=== PATIENT | male | born 1955 | race African-American/Black ===

== ENCOUNTER 2016-09-13 09:15 | Emergency (ER) | payer OTHER ==
[~2016-09-13] VITALS: Ht 170.2 cm; Wt 81.8 kg
[~2016-09-13 09:15] MED LIST: CARAFATE 1GM1 G PO; FLEXERIL5 MG PO; MEDROL 4MG DOSPA4 MG PO; MOTRIN SUSP20 MG/ML; NAPROSYN500 MG PO; NO HOME MEDICATIONS; NORCO 325 MG-51 TAB PO; PEPCID 20MG TAB20 MG PO; PEPCID40 MG PO; PROTONIX 40MG T40 MG PO
[2016-09-13 09:20] VITALS: TEMP 97.8
[2016-09-13] MEDS ORDERED: Antidepressant (09:24)
[2016-09-13 10:19] LABS: BASO # 0.1 (0.0-0.2); BASO % 0.7 % (0.0-2.0); EOS # 0.2 (0.0-0.7); EOS % 2.8 % (0-4.0); GRAN # 4.9 (1.4-6.5); GRAN % 70.8 % (42.2-75.2); HEMATOCRIT 41.4 % (42.0-52.0); HEMOGLOBIN 14.2 g/dl (13.5-18.0); LYMPH # 1.3 (1.2-3.4); LYMPH % 18.4 % (20.0-51.0); MEAN CELL VOLUME 85 fl (80.0-100.0); MEAN CORPUSCULAR HEMOGLOBIN 29 pg (27.0-31.0); MEAN CORPUSCULAR HGB CONC 34 g/dl (33.0-37.0); MEAN PLATELET VOLUME 9.1 fl (7.4-10.4); MONO # 0.5 (0.1-0.6); MONO % 6.7 % (1.7-9.3); PLATELET COUNT 381 K/mm3 (130-400); RED BLOOD COUNT 4.85 M/mm3 (4.20-5.60); REDCELL DISTRIBUTION WIDTH-CV 13.8 % (11.5-14.5); WHITE BLOOD COUNT 6.9 K/mm3 (4.8-10.8)
[2016-09-13 10:29] LABS: ADJUSTED CALCIUM 8.9 mg/dL (8.4-10.2); ALANINE AMINOTRANSFERASE 47 U/L (21-72); ALBUMIN 4.6 gm/dL (3.5-5.0); ALKALINE PHOSPHATASE 71 U/L (50-136); ANION GAP 13 mmol/L (7-16); BILIRUBIN,TOTAL 0.8 mg/dL (0.0-1.0); BLOOD UREA NITROGEN 16 mg/dL (9-20); C-REACTIVE PROTEIN < 0.5 mg/dL (0.0-0.9); CALCIUM 9.4 mg/dL (8.4-10.2); CARBON DIOXIDE 23 mmol/L (22-30); CHLORIDE 102 mmol/L (98-107); GLUCOSE 154 mg/dL (74-106); LIPASE 144 U/L (23-300); POTASSIUM 3.9 mmol/L (3.4-5.0); SODIUM 138 mmol/L (137-145); TOTAL PROTEIN 7.5 gm/dL (6.4-8.2)
[2016-09-13 10:42] LABS: PH 7 (5-8); SQUAMOUS EPITHELIAL 0-2 /hpf; URINE APPEARANCE Clear; URINE BACTERIA None Seen /hpf; URINE BILIRUBIN Negative (NEGATIVE); URINE BLOOD Negative (NEGATIVE); URINE COLOR Yellow; URINE GLUCOSE Negative (NEGATIVE); URINE KETONE Negative (NEGATIVE); URINE RBC 0-2 /hpf; URINE UROBILINOGEN Negative (NEGATIVE); URINE WBC 0-2 /hpf
[2016-09-13 10:49] LABS: TROPONIN-I < 0.012 ng/mL (0.000-0.034)
[2016-09-13] MEDS ORDERED: ZOFRAN 4MG T4 MG/TAB PO (11:29)
[2016-09-13] MEDS ORDERED: NORCO 325 MG-51 TAB PO (11:29)
[2016-09-13] MEDS ORDERED: PROTONIX 40MG T40 MG PO (11:29)
[2016-09-13] MEDS ORDERED: CIPRO 500MG TA500 MG PO (11:30)
[2016-09-13] MEDS ORDERED: FLAGYL500 MG PO (11:30)
[2016-09-13 11:46] VITALS: BP 103/62; PULSE 69
== END 2016-09-13 11:57 | disposition home or self-care (01) ==
LOC: COL.ER 09:15
PROVIDERS: Emergency Medicine
DX: K52.9 Noninfective gastroenteritis and colitis, unspecified (principal); R10.13 Epigastric pain; Z87.11 Personal history of peptic ulcer disease
CPT/HCPCS: J2405; J2550; J7030; Q9967

== ENCOUNTER 2016-09-21 09:34 | Emergency (ER) | payer OTHER ==
[~2016-09-21] VITALS: Ht 170.2 cm; Wt 82.3 kg
[~2016-09-21 09:34] MED LIST changes: +Antidepressant; +CIPRO 500MG TA500 MG PO; +FLAGYL500 MG PO; +ZOFRAN 4MG T4 MG/TAB PO
[2016-09-21 09:36] VITALS: TEMP 99.2
[2016-09-21 10:38] LABS: BASO % 0.1 % (0.0-2.0); GRAN # 13.2 (1.4-6.5); GRAN % 89.6 % (42.2-75.2); HEMATOCRIT 39.8 % (42.0-52.0); HEMOGLOBIN 13.5 g/dl (13.5-18.0); LYMPH # 0.8 (1.2-3.4); LYMPH % 5.3 % (20.0-51.0); MEAN CELL VOLUME 86 fl (80.0-100.0); MEAN CORPUSCULAR HEMOGLOBIN 29 pg (27.0-31.0); MEAN CORPUSCULAR HGB CONC 34 g/dl (33.0-37.0); MEAN PLATELET VOLUME 8.8 fl (7.4-10.4); MONO # 0.7 (0.1-0.6); MONO % 4.5 % (1.7-9.3); PLATELET COUNT 407 K/mm3 (130-400); RED BLOOD COUNT 4.64 M/mm3 (4.20-5.60); REDCELL DISTRIBUTION WIDTH-CV 14.2 % (11.5-14.5); WHITE BLOOD COUNT 14.7 K/mm3 (4.8-10.8)
[2016-09-21 10:53] LABS: ADJUSTED CALCIUM 8.8 mg/dL (8.4-10.2); ALANINE AMINOTRANSFERASE 41 U/L (21-72); ALBUMIN 4.3 gm/dL (3.5-5.0); ALKALINE PHOSPHATASE 62 U/L (50-136); ANION GAP 10 mmol/L (7-16); BILIRUBIN,TOTAL 0.9 mg/dL (0.0-1.0); BLOOD UREA NITROGEN 17 mg/dL (9-20); CARBON DIOXIDE 25 mmol/L (22-30); CHLORIDE 101 mmol/L (98-107); CREATININE, serum 0.88 mg/dL (0.66-1.25); GLUCOSE 116 mg/dL (74-106); LIPASE 272 U/L (23-300); POTASSIUM 3.6 mmol/L (3.4-5.0); SODIUM 136 mmol/L (137-145)
[2016-09-21 10:55] LABS: C-REACTIVE PROTEIN < 0.5 mg/dL (0.0-0.9)
[2016-09-21 11:27] LABS: PH 7 (5-8); SQUAMOUS EPITHELIAL None Seen /hpf; URINE APPEARANCE Clear; URINE BACTERIA None Seen /hpf; URINE BILIRUBIN Negative (NEGATIVE); URINE BLOOD Negative (NEGATIVE); URINE COLOR Yellow; URINE GLUCOSE Negative (NEGATIVE); URINE KETONE Negative (NEGATIVE); URINE RBC 0-2 /hpf; URINE WBC 0-2 /hpf
[2016-09-21] MEDS ORDERED: CIPRO 500MG TA500 MG PO (11:55)
[2016-09-21] MEDS ORDERED: FLAGYL500 MG PO (11:55)
[2016-09-21 13:19] VITALS: BP 131/84; PULSE 63
== END 2016-09-21 14:08 | disposition home or self-care (01) ==
LOC: COL.ER 09:34
PROVIDERS: Emergency Medicine
DX: R10.13 Epigastric pain (principal); Z87.11 Personal history of peptic ulcer disease

== ENCOUNTER 2016-12-02 03:45 | Observation (INO) | payer OTHER ==
[~2016-12-02] VITALS: Ht 170.2 cm; Wt 85.5 kg
[2016-12-02 04:12] LABS: BASO # 0.1 (0.0-0.2); BASO % 0.8 % (0.0-2.0); EOS # 0.5 (0.0-0.7); EOS % 5.5 % (0-4.0); GRAN # 5.2 (1.4-6.5); GRAN % 61.7 % (42.2-75.2); HEMATOCRIT 39.5 % (42.0-52.0); HEMOGLOBIN 13.3 g/dl (13.5-18.0); LYMPH # 2.1 (1.2-3.4); LYMPH % 24.5 % (20.0-51.0); MEAN CELL VOLUME 88 fl (80.0-100.0); MEAN CORPUSCULAR HEMOGLOBIN 30 pg (27.0-31.0); MEAN CORPUSCULAR HGB CONC 34 g/dl (33.0-37.0); MEAN PLATELET VOLUME 8.7 fl (7.4-10.4); MONO # 0.6 (0.1-0.6); MONO % 7.1 % (1.7-9.3); PLATELET COUNT 354 K/mm3 (130-400); REDCELL DISTRIBUTION WIDTH-CV 13.7 % (11.5-14.5); WHITE BLOOD COUNT 8.5 K/mm3 (4.8-10.8)
[2016-12-02 04:24] LABS: ALANINE AMINOTRANSFERASE 39 U/L (21-72); ALBUMIN 4.1 gm/dL (3.5-5.0); ALKALINE PHOSPHATASE 66 U/L (50-136); ANION GAP 14 mmol/L (7-16); BILIRUBIN,TOTAL 0.7 mg/dL (0.0-1.0); BLOOD UREA NITROGEN 17 mg/dL (9-20); CALCIUM 9.1 mg/dL (8.4-10.2); CARBON DIOXIDE 22 mmol/L (22-30); CHLORIDE 104 mmol/L (98-107); CREATININE, serum 1.09 mg/dL (0.66-1.25); GLUCOSE 129 mg/dL (74-106); LIPASE 136 U/L (23-300); POTASSIUM 3.3 mmol/L (3.4-5.0); SODIUM 140 mmol/L (137-145); TOTAL PROTEIN 7.1 gm/dL (6.4-8.2)
[2016-12-02 04:25] LABS: C-REACTIVE PROTEIN < 0.5 mg/dL (0.0-0.9)
[2016-12-02] MEDS ORDERED: IBU800 M1 PO (04:44)
[2016-12-02] MEDS ORDERED: CELEXA40 MG PO (04:46)
[2016-12-02 07:48] VITALS: BP 151/75; PULSE 74; TEMP 98.9
[2016-12-02 09:58] VITALS: BP 140/69; PULSE 63; TEMP 98.8
[2016-12-02 14:16] VITALS: BP 133/65; PULSE 66; TEMP 99.4
[2016-12-02 17:30] VITALS: BP 155/76; PULSE 81; TEMP 99.5
[2016-12-02 22:00] VITALS: BP 129/66; PULSE 80; TEMP 98.9
[2016-12-03 04:00] VITALS: BP 119/64; PULSE 74; TEMP 98.8
[2016-12-03 09:14] VITALS: BP 127/61; PULSE 64; TEMP 98
== END 2016-12-03 13:46 | disposition home or self-care (01) ==
LOC: COL.ER 03:45 → SURG 06:19
PROVIDERS: Emergency Medicine
DX: R11.2 Nausea with vomiting, unspecified (principal); K44.9 Diaphragmatic hernia without obstruction or gangrene; Z87.11 Personal history of peptic ulcer disease
CPT/HCPCS: C9113; G0378; J2270; J2405; J2550; J7030; Q9967

== ENCOUNTER 2016-12-05 01:42 | Emergency (ER) | payer OTHER ==
[~2016-12-05] VITALS: Ht 170.2 cm; Wt 81.8 kg
[~2016-12-05 01:42] MED LIST changes: +CELEXA40 MG PO; +IBU800 M1 PO
[2016-12-05 01:44] VITALS: TEMP 96.8
[2016-12-05 02:13] LABS: BASO # 0.1 (0.0-0.2); BASO % 0.9 % (0.0-2.0); EOS # 0.5 (0.0-0.7); EOS % 6.3 % (0-4.0); GRAN # 5.3 (1.4-6.5); GRAN % 66.1 % (42.2-75.2); HEMATOCRIT 38.2 % (42.0-52.0); HEMOGLOBIN 13.2 g/dl (13.5-18.0); LYMPH # 1.4 (1.2-3.4); LYMPH % 17.7 % (20.0-51.0); MEAN CELL VOLUME 86 fl (80.0-100.0); MEAN CORPUSCULAR HEMOGLOBIN 30 pg (27.0-31.0); MEAN CORPUSCULAR HGB CONC 35 g/dl (33.0-37.0); MEAN PLATELET VOLUME 8.7 fl (7.4-10.4); MONO # 0.7 (0.1-0.6); MONO % 8.4 % (1.7-9.3); PLATELET COUNT 324 K/mm3 (130-400); RED BLOOD COUNT 4.42 M/mm3 (4.20-5.60); REDCELL DISTRIBUTION WIDTH-CV 13.9 % (11.5-14.5)
[2016-12-05 02:25] LABS: ADJUSTED CALCIUM 8.9 mg/dL (8.4-10.2); ALANINE AMINOTRANSFERASE 41 U/L (21-72); ALBUMIN 4.4 gm/dL (3.5-5.0); ALKALINE PHOSPHATASE 61 U/L (50-136); ANION GAP 11 mmol/L (7-16); BILIRUBIN,TOTAL 0.7 mg/dL (0.0-1.0); BLOOD UREA NITROGEN 14 mg/dL (9-20); C-REACTIVE PROTEIN 0.7 mg/dL (0.0-0.9); CALCIUM 9.2 mg/dL (8.4-10.2); CARBON DIOXIDE 26 mmol/L (22-30); CHLORIDE 104 mmol/L (98-107); CREATININE, serum 1.08 mg/dL (0.66-1.25); GLUCOSE 115 mg/dL (74-106); LIPASE 86 U/L (23-300); POTASSIUM 3.7 mmol/L (3.4-5.0); SODIUM 141 mmol/L (137-145); TOTAL PROTEIN 7.3 gm/dL (6.4-8.2)
[2016-12-05 02:47] LABS: TROPONIN-I < 0.012 ng/mL (0.000-0.034)
[2016-12-05 03:15] VITALS: BP 175/96; PULSE 62
== END 2016-12-05 03:30 | disposition home or self-care (01) ==
LOC: COL.ER 01:42
PROVIDERS: Physician Assistant
DX: K29.70 Gastritis, unspecified, without bleeding (principal); K59.00 Constipation, unspecified; K21.9 Gastro-esophageal reflux disease without esophagitis; K27.9 Peptic ulcer, site unspecified, unspecified as acute or chronic, without hemorrhage or perforation; K75.9 Inflammatory liver disease, unspecified; J45.909 Unspecified asthma, uncomplicated; F32.9 Major depressive disorder, single episode, unspecified; M19.90 Unspecified osteoarthritis, unspecified site; Z87.891 Personal history of nicotine dependence; Z98.890 Other specified postprocedural states
CPT/HCPCS: C9113; J1170; J2405; J2550; J7030

== ENCOUNTER 2016-12-05 21:17 | Emergency (ER) | payer OTHER ==
[~2016-12-05] VITALS: Ht 170.2 cm; Wt 83.2 kg
[2016-12-05 21:21] VITALS: TEMP 99.1
[2016-12-05 23:28] VITALS: BP 160/75; PULSE 78
== END 2016-12-05 23:30 | disposition home or self-care (01) ==
LOC: COL.ER 21:17
DX: K59.00 Constipation, unspecified (principal); K75.9 Inflammatory liver disease, unspecified; J45.909 Unspecified asthma, uncomplicated; F32.9 Major depressive disorder, single episode, unspecified; M19.90 Unspecified osteoarthritis, unspecified site; Z87.891 Personal history of nicotine dependence; Z98.890 Other specified postprocedural states

== ENCOUNTER 2016-12-07 00:02 | Emergency (ER) | payer OTHER ==
[~2016-12-07] VITALS: Ht 170.2 cm; Wt 83.2 kg
[2016-12-07 00:03] VITALS: TEMP 98.6
[2016-12-07 00:38] LABS: BASO % 0.4 % (0.0-2.0); EOS # 0.1 (0.0-0.7); EOS % 0.5 % (0-4.0); GRAN % 78.6 % (42.2-75.2); LYMPH # 1.3 (1.2-3.4); LYMPH % 12.5 % (20.0-51.0); MEAN CELL VOLUME 83 fl (80.0-100.0); MEAN CORPUSCULAR HEMOGLOBIN 30 pg (27.0-31.0); MEAN CORPUSCULAR HGB CONC 36 g/dl (33.0-37.0); MEAN PLATELET VOLUME 8.6 fl (7.4-10.4); MONO # 0.8 (0.1-0.6); MONO % 7.5 % (1.7-9.3); PLATELET COUNT 421 K/mm3 (130-400); RED BLOOD COUNT 5.28 M/mm3 (4.20-5.60); REDCELL DISTRIBUTION WIDTH-CV 13.6 % (11.5-14.5); WHITE BLOOD COUNT 10.2 K/mm3 (4.8-10.8)
[2016-12-07 00:39] LABS: HEMOGLOBIN 15.8 g/dl (13.5-18.0)
[2016-12-07 00:47] LABS: ADJUSTED CALCIUM 8.4 mg/dL (8.4-10.2); ALBUMIN 4.7 gm/dL (3.5-5.0); BILIRUBIN,TOTAL 1.4 mg/dL (0.0-1.0); CREATININE, serum 1.04 mg/dL (0.66-1.25); POTASSIUM 3.6 mmol/L (3.4-5.0); TOTAL PROTEIN 8.1 gm/dL (6.4-8.2)
[2016-12-07] MEDS ORDERED: ZOFRAN8 MG PO (01:03)
[2016-12-07] MEDS ORDERED: PRIL40 PO (01:03)
[2016-12-07] MEDS ORDERED: ULTRAM 50MG TAB50 MG PO (01:03)
[2016-12-07] MEDS ORDERED: PERCOCET 325 MG1 TA2 PO (01:03)
[2016-12-07 02:01] VITALS: BP 119/72; PULSE 80
== END 2016-12-07 02:25 | disposition home or self-care (01) ==
LOC: COL.ER 00:02
PROVIDERS: Emergency Medicine
DX: R10.13 Epigastric pain (principal); K75.9 Inflammatory liver disease, unspecified; F32.9 Major depressive disorder, single episode, unspecified; M19.90 Unspecified osteoarthritis, unspecified site; J45.909 Unspecified asthma, uncomplicated; Z87.891 Personal history of nicotine dependence; Z87.01 Personal history of pneumonia (recurrent)
CPT/HCPCS: C9113; J1170; J2405

== ENCOUNTER 2017-10-07 16:21 | Emergency (ER) | payer SELFPAY ==
[~2017-10-07] VITALS: Ht 170.2 cm; Wt 82.7 kg
[~2017-10-07 16:21] MED LIST changes: +PERCOCET 325 MG1 TA2 PO; +PRIL40 PO; +ULTRAM 50MG TAB50 MG PO; +ZOFRAN8 MG PO
[2017-10-07 16:26] VITALS: TEMP 99.6
[2017-10-07 16:58] LABS: COLLECTION METHOD CLEAN CATCH
[2017-10-07 17:05] LABS: MUCOUS Present /lpf; PH 6 (5-8); SQUAMOUS EPITHELIAL None Seen /hpf; URINE APPEARANCE Clear; URINE BACTERIA None Seen /hpf; URINE BILIRUBIN Negative (NEGATIVE); URINE BLOOD Negative (NEGATIVE); URINE COLOR Yellow; URINE GLUCOSE Negative (NEGATIVE); URINE KETONE Negative (NEGATIVE); URINE LEUKOCYTE ESTERASE Negative (NEGATIVE); URINE NITRATE Negative (NEGATIVE); URINE PROTEIN(semi-quant) Negative (NEGATIVE); URINE RBC 0-2 /hpf; URINE UROBILINOGEN Negative (NEGATIVE)
[2017-10-07 17:29] LABS: BASO # 0.1 (0.0-0.2); BASO % 0.5 % (0.0-2.0); EOS % 0.2 % (0-4.0); GRAN # 7.7 (1.4-6.5); GRAN % 82.8 % (42.2-75.2); HEMATOCRIT 43.3 % (42.0-52.0); HEMOGLOBIN 14.5 g/dl (13.5-18.0); LYMPH % 10.8 % (20.0-51.0); MEAN CELL VOLUME 88 fl (80.0-100.0); MEAN CORPUSCULAR HEMOGLOBIN 29 pg (27.0-31.0); MEAN CORPUSCULAR HGB CONC 34 g/dl (33.0-37.0); MEAN PLATELET VOLUME 8.6 fl (7.4-10.4); MONO # 0.5 (0.1-0.6); MONO % 5.4 % (1.7-9.3); PLATELET COUNT 427 K/mm3 (130-400); RED BLOOD COUNT 4.94 M/mm3 (4.20-5.60); REDCELL DISTRIBUTION WIDTH-CV 13.5 % (11.5-14.5)
[2017-10-07 17:51] LABS: ALBUMIN 4.4 gm/dL (3.5-5.0); BILIRUBIN,TOTAL 0.7 mg/dL (0.0-1.0); C-REACTIVE PROTEIN 0.6 mg/dL (0.0-0.9); CALCIUM 9.3 mg/dL (8.4-10.2); CREATININE, serum 1.08 mg/dL (0.66-1.25); POTASSIUM 3.9 mmol/L (3.4-5.0); TOTAL PROTEIN 8.3 gm/dL (6.4-8.2)
[2017-10-07] MEDS ORDERED: PRILOSEC 20MG20 MG PO (17:56)
[2017-10-07 18:20] VITALS: BP 141/81; PULSE 82
== END 2017-10-07 18:26 | disposition home or self-care (01) ==
LOC: COL.ER 16:21
PROVIDERS: Family Medicine
DX: K29.70 Gastritis, unspecified, without bleeding (principal); K21.9 Gastro-esophageal reflux disease without esophagitis
CPT/HCPCS: C9113; J2405; J7030

== ENCOUNTER → 2020-02-01 | Outpatient (CLI) | payer SELFPAY ==
[~2020-02-01] MED LIST changes: +LASIX 40MG TABL40 MG PO; +PRILOSEC 20MG20 MG PO; +ZOFRAN ODT4 MG PO; +ZOFRAN ODT8 MG PO
== END | disposition still patient (30) ==
LOC: COL.RAD 12:00
DX: M51.26 Other intervertebral disc displacement, lumbar region (principal); M48.061 Spinal stenosis, lumbar region without neurogenic claudication; M48.07 Spinal stenosis, lumbosacral region; M51.37 Other intervertebral disc degeneration, lumbosacral region; M47.817 Spondylosis without myelopathy or radiculopathy, lumbosacral region

== ENCOUNTER 2020-02-16 00:53 | Emergency (ER) | payer SELFPAY ==
[~2020-02-16] VITALS: Ht 170.2 cm; Wt 86.4 kg
[~2020-02-16 00:53] MED LIST changes: -LASIX 40MG TABL40 MG PO; -ZOFRAN ODT4 MG PO; -ZOFRAN ODT8 MG PO
[2020-02-16 01:06] VITALS: TEMP 98.3
[2020-02-16] MEDS ORDERED: LASIX 40MG TABL40 MG PO (01:10)
[2020-02-16 01:53] LABS: BASO % 0.3 % (0.0-2.0); EOS # 0.1 (0.0-0.7); EOS % 0.6 % (0-4.0); GRAN # 9.7 (1.4-6.5); GRAN % 86.5 % (42.2-75.2); HEMATOCRIT 40.1 % (42.0-52.0); HEMOGLOBIN 13.2 g/dl (13.5-18.0); LYMPH % 8.7 % (20.0-51.0); MEAN CELL VOLUME 88 fl (80.0-100.0); MEAN CORPUSCULAR HEMOGLOBIN 29 pg (27.0-31.0); MEAN CORPUSCULAR HGB CONC 33 g/dl (33.0-37.0); MEAN PLATELET VOLUME 8.7 fl (7.4-10.4); MONO # 0.4 (0.1-0.6); MONO % 3.5 % (1.7-9.3); PLATELET COUNT 369 K/mm3 (130-400); RED BLOOD COUNT 4.54 M/mm3 (4.20-5.60); REDCELL DISTRIBUTION WIDTH-CV 13.7 % (11.5-14.5)
[2020-02-16 02:00] LABS: COLLECTION METHOD CLEAN CATCH
[2020-02-16 02:03] LABS: ALANINE AMINOTRANSFERASE 32 U/L (4-49); ALBUMIN 4.3 gm/dL (3.5-5.0); ALKALINE PHOSPHATASE 66 U/L (50-136); ANION GAP 10 mmol/L (7-16); AST,SGOT 34 U/L (15-37); BILIRUBIN,TOTAL 0.6 mg/dL (0.0-1.0); BLOOD UREA NITROGEN 17 mg/dL (9-20); CALCIUM 9.1 mg/dL (8.4-10.2); CARBON DIOXIDE 26 mmol/L (22-30); CHLORIDE 103 mmol/L (98-107); CREATININE, serum 1.19 (0.66-1.25); GLUCOSE 132 mg/dL (74-106); LIPASE 53 U/L (23-300); POTASSIUM 4.5 mmol/L (3.4-5.0); SODIUM 139 mmol/L (137-145); TOTAL PROTEIN 7.2 gm/dL (6.4-8.2)
[2020-02-16 02:11] LABS: PH 7 (5-8); SQUAMOUS EPITHELIAL 0-2 /hpf; URINE APPEARANCE Clear; URINE BACTERIA None Seen /hpf; URINE BILIRUBIN Negative (NEGATIVE); URINE BLOOD Negative (NEGATIVE); URINE COLOR Yellow; URINE GLUCOSE Negative (NEGATIVE); URINE KETONE Trace (NEGATIVE); URINE LEUKOCYTE ESTERASE Negative (NEGATIVE); URINE NITRATE Negative (NEGATIVE); URINE PROTEIN(semi-quant) Negative (NEGATIVE); URINE RBC 0-2 /hpf; URINE UROBILINOGEN Negative (NEGATIVE)
[2020-02-16 02:16] LABS: TROPONIN-I < 0.012 ng/mL (0.000-0.035)
[2020-02-16] MEDS ORDERED: PRIL40 PO (04:13)
[2020-02-16 04:15] VITALS: BP 149/83; PULSE 79
== END 2020-02-16 06:35 | disposition home or self-care (01) ==
LOC: COL.ER 00:53
PROVIDERS: Emergency Medicine
DX: R10.13 Epigastric pain (principal); R11.10 Vomiting, unspecified; M54.5 Low back pain; G89.29 Other chronic pain; Z87.891 Personal history of nicotine dependence
CPT/HCPCS: J0780; J2405; J7030; Q9967

== ENCOUNTER 2020-02-19 06:26 | Emergency (ER) | payer SELFPAY ==
[~2020-02-19] VITALS: Ht 170.2 cm; Wt 86.4 kg
[~2020-02-19 06:26] MED LIST changes: +LASIX 40MG TABL40 MG PO
[2020-02-19 06:32] VITALS: BP 166/88; TEMP 98.4
[2020-02-19 07:15] LABS: BASO # 0.1 (0.0-0.2); BASO % 0.7 % (0.0-2.0); EOS # 0.2 (0.0-0.7); EOS % 2.7 % (0-4.0); GRAN # 6.4 (1.4-6.5); GRAN % 77.4 % (42.2-75.2); HEMATOCRIT 41.2 % (42.0-52.0); HEMOGLOBIN 13.9 g/dl (13.5-18.0); LYMPH % 12.1 % (20.0-51.0); MEAN CELL VOLUME 87 fl (80.0-100.0); MEAN CORPUSCULAR HEMOGLOBIN 29 pg (27.0-31.0); MEAN CORPUSCULAR HGB CONC 34 g/dl (33.0-37.0); MEAN PLATELET VOLUME 8.8 fl (7.4-10.4); MONO # 0.6 (0.1-0.6); MONO % 6.6 % (1.7-9.3); PLATELET COUNT 387 K/mm3 (130-400); RED BLOOD COUNT 4.74 M/mm3 (4.20-5.60); REDCELL DISTRIBUTION WIDTH-CV 13.2 % (11.5-14.5)
[2020-02-19 07:18] LABS: ALANINE AMINOTRANSFERASE 37 U/L (4-49); ALBUMIN 4.4 gm/dL (3.5-5.0); ALKALINE PHOSPHATASE 68 U/L (50-136); ANION GAP 8 mmol/L (7-16); AST,SGOT 36 U/L (15-37); BILIRUBIN,TOTAL 0.6 mg/dL (0.0-1.0); BLOOD UREA NITROGEN 15 mg/dL (9-20); C-REACTIVE PROTEIN 0.6 mg/dL (0.0-0.9); CALCIUM 9.1 mg/dL (8.4-10.2); CARBON DIOXIDE 28 mmol/L (22-30); CHLORIDE 101 mmol/L (98-107); CREATININE, serum 1.18 (0.66-1.25); GLUCOSE 112 mg/dL (74-106); LIPASE 69 U/L (23-300); POTASSIUM 4.1 mmol/L (3.4-5.0); SODIUM 137 mmol/L (137-145); TOTAL PROTEIN 7.5 gm/dL (6.4-8.2)
[2020-02-19 07:29] LABS: TROPONIN-I < 0.012 ng/mL (0.000-0.035)
[2020-02-19] MEDS ORDERED: CARAFATE 1GM1 G PO (07:46)
[2020-02-19] MEDS ORDERED: ZOFRAN ODT8 MG PO (07:46)
[2020-02-19] MEDS ORDERED: PROTONIX 40MG T40 MG PO (07:46)
--- NOTE | 2020-02-19 11:20 | NUR ---
SW received consult for medications and clothing. SW met with patient in 3A about his needs. Patient reports that he does not have any insurance coverage for medications. Patient denies being homeless and is residing at [address] [place] [address] [id number]. Patient that he does not have primary care. Patient shares that he is aware of resources in the community for medications i.e. NanoVasc, and [employer]. SW educated patient on medication voucher. [facility] setup resource through [facility] on [address]. Faxed Voucher for patient. Nothing follows.
[2020-02-19 12:06] VITALS: PULSE 80
== END 2020-02-19 12:06 | disposition home or self-care (01) ==
LOC: COL.ER 06:26
PROVIDERS: Emergency Medicine
DX: R10.13 Epigastric pain (principal); K29.80 Duodenitis without bleeding
CPT/HCPCS: C9113; J2270; J2405; J2550; J7030

== ENCOUNTER 2020-02-21 06:40 | Emergency (ER) | payer SELFPAY ==
[~2020-02-21] VITALS: Ht 170.2 cm; Wt 86.4 kg
[~2020-02-21 06:40] MED LIST changes: +ZOFRAN ODT8 MG PO
[2020-02-21 06:41] VITALS: TEMP 98.1
[2020-02-21 07:27] LABS: BASO # 0.1 (0.0-0.2); BASO % 0.8 % (0.0-2.0); EOS # 0.4 (0.0-0.7); EOS % 4.1 % (0-4.0); GRAN % 70.4 % (42.2-75.2); HEMATOCRIT 43.6 % (42.0-52.0); HEMOGLOBIN 14.8 g/dl (13.5-18.0); LYMPH # 1.5 (1.2-3.4); LYMPH % 17.3 % (20.0-51.0); MEAN CELL VOLUME 87 fl (80.0-100.0); MEAN CORPUSCULAR HEMOGLOBIN 29 pg (27.0-31.0); MEAN CORPUSCULAR HGB CONC 34 g/dl (33.0-37.0); MEAN PLATELET VOLUME 8.6 fl (7.4-10.4); MONO # 0.6 (0.1-0.6); MONO % 6.9 % (1.7-9.3); PLATELET COUNT 437 K/mm3 (130-400); RED BLOOD COUNT 5.04 M/mm3 (4.20-5.60); REDCELL DISTRIBUTION WIDTH-CV 13.3 % (11.5-14.5)
[2020-02-21 07:42] LABS: ALBUMIN 4.7 gm/dL (3.5-5.0); BILIRUBIN,TOTAL 0.7 mg/dL (0.0-1.0); CALCIUM 9.5 mg/dL (8.4-10.2); CREATININE, serum 1.2 (0.66-1.25); POTASSIUM 3.7 mmol/L (3.4-5.0); TOTAL PROTEIN 8.1 gm/dL (6.4-8.2)
[2020-02-21] MEDS ORDERED: PROTONIX 40MG T40 MG PO (08:34)
[2020-02-21] MEDS ORDERED: CARAFATE 1GM1 G PO (08:34)
[2020-02-21] MEDS ORDERED: ZOFRAN ODT4 MG PO (08:34)
[2020-02-21 08:45] VITALS: BP 136/101; PULSE 81
== END 2020-02-21 09:13 | disposition home or self-care (01) ==
LOC: COL.ER 06:40
PROVIDERS: Emergency Medicine
DX: R10.13 Epigastric pain (principal); Z87.891 Personal history of nicotine dependence
CPT/HCPCS: J1790; J2405

== ENCOUNTER 2020-09-07 16:14 | Emergency (ER) | payer OTHER ==
[~2020-09-07] VITALS: Ht 170.2 cm; Wt 79.5 kg
[~2020-09-07 16:14] MED LIST changes: +ZOFRAN ODT4 MG PO
[2020-09-07 16:15] VITALS: BP 136/72; TEMP 99.1
[2020-09-07 17:49] LABS: BASO # 0.1 (0.0-0.2); BASO % 1.1 % (0.0-2.0); EOS # 0.3 (0.0-0.7); EOS % 5.3 % (0-4.0); GRAN # 4.2 (1.4-6.5); GRAN % 68.7 % (42.2-75.2); HEMATOCRIT 41.3 % (42.0-52.0); HEMOGLOBIN 13.5 g/dl (13.5-18.0); LYMPH # 1.1 (1.2-3.4); LYMPH % 17.3 % (20.0-51.0); MEAN CELL VOLUME 89 fl (80.0-100.0); MEAN CORPUSCULAR HEMOGLOBIN 29 pg (27.0-31.0); MEAN CORPUSCULAR HGB CONC 33 g/dl (33.0-37.0); MEAN PLATELET VOLUME 8.8 fl (7.4-10.4); MONO # 0.4 (0.1-0.6); MONO % 7.1 % (1.7-9.3); PLATELET COUNT 411 K/mm3 (130-400); RED BLOOD COUNT 4.65 M/mm3 (4.20-5.60); REDCELL DISTRIBUTION WIDTH-CV 13.7 % (11.5-14.5)
[2020-09-07 17:55] LABS: BILIRUBIN,TOTAL 0.2 mg/dL (0.0-1.0); C-REACTIVE PROTEIN 0.6 mg/dL (0.0-0.9); CALCIUM 9.1 mg/dL (8.4-10.2); CREATININE, serum 1.02 (0.66-1.25); POTASSIUM 4.2 mmol/L (3.4-5.0)
[2020-09-07] MEDS ORDERED: NORCO 325 MG-51 TAB PO (19:15)
[2020-09-07] MEDS ORDERED: WALKER MC (19:17)
[2020-09-07 19:19] LABS: ERYTHROCYTE SEDIMENTATION RATE 13 mm/hr (0-30)
[2020-09-07 19:30] VITALS: PULSE 66
== END 2020-09-07 19:30 | disposition home or self-care (01) ==
LOC: COL.ER 16:14
PROVIDERS: Nurse Practitioner
DX: M25.551 Pain in right hip (principal); Z87.891 Personal history of nicotine dependence
CPT/HCPCS: J1170

== ENCOUNTER → 2020-09-22 | Outpatient (CLI) | payer OTHER ==
[~2020-09-22] MED LIST changes: +WALKER MC
== END ==
LOC: COL.RAD 11:29
DX: M17.0 Bilateral primary osteoarthritis of knee (principal)